=== PATIENT | female | born 1965 | race Two or more races ===

== ENCOUNTER 2023-01-18 18:07 | Inpatient (IN) | payer OTHER ==
[2023-01-18 20:36] LABS: PH,URINE 5.5 (5.0-8.0); URINE APPEARANCE CLEAR; URINE BILIRUBIN NEGATIVE (NEGATIVE); URINE COLOR YELLOW; URINE GLUCOSE (UA) 3+ (NEGATIVE); URINE KETONE 1+ (NEGATIVE); URINE LEUK ESTERASE NEGATIVE (NEGATIVE); URINE NITRITE NEGATIVE (NEGATIVE); URINE PROTEIN NEGATIVE (NEGATIVE); URINE UROBILINOGEN 0.2 mg/dL (0.2-1.0)
[2023-01-18] MEDS ORDERED: SODIUM CHLORIDE 0.9% 500 ML INFUS.BAG IV ONE ×2 (21:07→22:57)
[2023-01-18 21:20] LABS: BASO % 0.8 % (0-2.0); EOS % 0.2 % (0-4.5); HEMATOCRIT 39.3 % (32.4-45.2); HEMOGLOBIN 12.5 GM/dL (10.7-15.3); MCH 26.7 pg (25.7-33.7); MCHC 31.9 g/dl (32.0-36.0); MEAN CELL VOLUME 83.8 fl (80-96); MEAN PLT VOLUME 11.3 fl (7.5-11.1); MONO % 4.7 % (3.8-10.2); NEUT % 77.3 % (42.8-82.8); PLATELET COUNT 225 10^3/uL (134-434); RDW 16.5 % (11.6-15.6); WHITE BLOOD COUNT 14.1 K/mm3 (4.0-10.0)
[2023-01-18 21:30] LABS: CHLORIDE 92 mmol/L (98-107); SODIUM 125 mmol/L (136-145)
[2023-01-18 21:32] LABS: CALCIUM 8.8 mg/dL (8.5-10.1)
[2023-01-18 21:33] LABS: ALBUMIN 3.1 g/dl (3.4-5.0); BLOOD UREA NITROGEN 13.9 mg/dL (7-18); CO2 27 mmol/L (21-32)
[2023-01-18 21:36] LABS: CREATININE 1.2 mg/dL (0.55-1.3)
[2023-01-18 21:37] LABS: BILIRUBIN,TOTAL 0.7 mg/dL (0.2-1); TOT PROT 9.2 g/dl (6.4-8.2)
[2023-01-18 21:38] LABS: ALK PHOS 172 U/L (45-117)
[2023-01-18 23:41] LABS: ANION GAP 6 MMOL/L (8-16); GLUCOSE,RANDOM 753 mg/dL (74-106); POTASSIUM > 10.0 mmol/L (3.5-5.1); SGOT/AST 108 U/L (15-37); SGPT/ALT 40 U/L (13-61)
[2023-01-18] MEDS ORDERED: INSULIN REGULAR HUMAN 100 UNITS/ML *VIAL IVPUSH ONE (23:46)
[2023-01-18 23:52] LABS: BILIRUBIN,DIRECT < 0.1 mg/dL (0.0-0.2)
[2023-01-19 01:32] LABS: VENOUS BASE EXCESS -1.9 mmol/L (-2-2); VENOUS O2 SATURATION 79.5 % (70-80); VENOUS PCO2 43.2 mmHg (38-52); VENOUS PH 7.356 (7.310-7.410)
[2023-01-19 01:42] LABS: CHLORIDE 104 mmol/L (98-107); POTASSIUM 5.2 mmol/L (3.5-5.1); SODIUM 137 mmol/L (136-145)
[2023-01-19 01:44] LABS: ANION GAP 8 MMOL/L (8-16); CO2 25 mmol/L (21-32)
[2023-01-19 01:47] LABS: CREATININE 0.8 mg/dL (0.55-1.3)
[2023-01-19 02:41] LABS: CALCIUM 7.8 mg/dL (8.5-10.1); GLUCOSE,RANDOM 528 mg/dL (74-106)
[2023-01-19] MEDS ORDERED: INSULIN REGULAR HUMAN 100 UNITS/ML *VIAL IVPUSH ONE ×2 (04:29→04:37)
[2023-01-19] MEDS ORDERED: SODIUM CHLORIDE 1,000 ML IV STA (04:30)
[2023-01-19] MEDS ORDERED: INSULIN SLIDING SCALE (NOVOLOG) 1 VIAL SQ SCH (04:45)
[2023-01-19 06:43] LABS: POTASSIUM 3.6 mmol/L (3.5-5.1)
[2023-01-19 06:45] LABS: CALCIUM 7.2 mg/dL (8.5-10.1)
[2023-01-19 06:46] LABS: BLOOD UREA NITROGEN 9.7 mg/dL (7-18)
[2023-01-19 06:48] LABS: PHOSPHOROUS 1.2 mg/dL (2.5-4.9)
[2023-01-19 06:49] LABS: CREATININE 0.6 mg/dL (0.55-1.3)
[2023-01-19 06:50] LABS: BILIRUBIN,TOTAL 0.4 mg/dL (0.2-1)
[2023-01-19] MEDS ORDERED: INSULIN (NOVOLOG) ASPART 100 UNITS/ML 10ML VIAL SQ SCH (07:00)
[2023-01-19 07:05] LABS: BASO % 0.6 % (0-2.0); EOS % 1.4 % (0-4.5); HEMATOCRIT 30.7 % (32.4-45.2); HEMOGLOBIN 9.8 GM/dL (10.7-15.3); LYMPH % 24.9 % (8-40); MCH 25.9 pg (25.7-33.7); MCHC 32.1 g/dl (32.0-36.0); MEAN CELL VOLUME 80.9 fl (80-96); MEAN PLT VOLUME 9.1 fl (7.5-11.1); MONO % 7.3 % (3.8-10.2); NEUT % 65.8 % (42.8-82.8); PLATELET COUNT 162 10^3/uL (134-434); WHITE BLOOD COUNT 13.6 K/mm3 (4.0-10.0)
[2023-01-19 07:45] LABS: ALBUMIN 2.3 g/dl (3.4-5.0); TOT PROT 6.1 g/dl (6.4-8.2)
[2023-01-19] MEDS ORDERED: POTASSIUM CHLORIDE TABS 20 MEQ TABLET.ER (FP) PO ONE (08:00)
[2023-01-19] MEDS: NAPH,MB-DB/K PH,MBDB POWDER PACKET PO SCH ×3 (08:22→22:08)
[2023-01-19] MEDS: INSULIN SLIDING SCALE (NOVOLOG) 1 VIAL SQ SCH ×3 (08:23→17:52)
[2023-01-19] MEDS ORDERED: SODIUM PHOSPHATE - 30 MM in SODIUM CHLORIDE 500 ML IVPB ONE (08:30)
[2023-01-19] MEDS ORDERED: INSULIN (LEVEMIR) 100 UNITS/ML UNITS SQ SCH ×2 (10:00)
[2023-01-19] MEDS ORDERED: SODIUM CHLORIDE 1,000 ML IV SCH (10:15)
[2023-01-19] MEDS: ENOXAPARIN NA (PORCINE) 40 MG/0.4 ML DISP.SYRIN SQ SCH (10:44)
[2023-01-19] MEDS: BUDESONIDE/FORMETEROL FUMARATE 80/4.5 mcg INHALER IH SCH ×2 (11:22→22:09)
[2023-01-19] MEDS: INSULIN (NOVOLOG) ASPART 100 UNITS/ML 10ML VIAL SQ SCH ×2 (12:28→17:53)
[2023-01-19 16:38] VITALS: BMI 37.8
[2023-01-20] MEDS: NAPH,MB-DB/K PH,MBDB POWDER PACKET PO SCH ×3 (06:31→21:06)
[2023-01-20] MEDS: INSULIN (LEVEMIR) 100 UNITS/ML UNITS SQ SCH ×2 (06:35→21:07)
[2023-01-20] MEDS: INSULIN (NOVOLOG) ASPART 100 UNITS/ML 10ML VIAL SQ SCH ×3 (06:35→17:31)
[2023-01-20] MEDS: INSULIN SLIDING SCALE (NOVOLOG) 1 VIAL SQ SCH ×3 (06:36→17:31)
[2023-01-20] MEDS: BUDESONIDE/FORMETEROL FUMARATE 80/4.5 mcg INHALER IH SCH ×2 (09:49→21:08)
[2023-01-20] MEDS: ENOXAPARIN NA (PORCINE) 40 MG/0.4 ML DISP.SYRIN SQ SCH (09:49)
[2023-01-20 10:18] LABS: HEMOGLOBIN 11.1 GM/dL (10.7-15.3); MCH 26.6 pg (25.7-33.7); MCHC 32.8 g/dl (32.0-36.0); MEAN CELL VOLUME 81.2 fl (80-96); MEAN PLT VOLUME 10.1 fl (7.5-11.1); PLATELET COUNT 162 10^3/uL (134-434); RBC 4.19 M/mm3 (3.60-5.2); RDW 15.7 % (11.6-15.6); WHITE BLOOD COUNT 12.8 K/mm3 (4.0-10.0)
[2023-01-20 10:42] LABS: POTASSIUM 3.7 mmol/L (3.5-5.1)
[2023-01-20 10:45] LABS: ALBUMIN 2.5 g/dl (3.4-5.0); BLOOD UREA NITROGEN 4.4 mg/dL (7-18); CALCIUM 7.9 mg/dL (8.5-10.1); MAGNESIUM 1.7 mg/dL (1.8-2.4)
[2023-01-20 10:47] LABS: CHOLESTEROL 108 mg/dL (50-200)
[2023-01-20 10:48] LABS: LDL CHOLESTEROL (ONLY SJRH) 67 mg/dL (5-100); PHOSPHOROUS 1.9 mg/dL (2.5-4.9)
[2023-01-20 10:49] LABS: CREATININE 0.5 mg/dL (0.55-1.3)
[2023-01-20 10:50] LABS: BILIRUBIN,TOTAL 0.5 mg/dL (0.2-1); TOT PROT 6.6 g/dl (6.4-8.2)
[2023-01-20 10:51] LABS: HDL CHOLESTEROL 26 mg/dL (40-60)
[2023-01-20] MEDS: LISINOPRIL 5 MG TABLET PO SCH (11:38)
[2023-01-20 12:05] VITALS: RESP 18
[2023-01-20] MEDS ORDERED: MAGNESIUM 2GM/50ML STERILE WATER IVPB IVPB ONE (14:15)
[2023-01-20] MEDS ORDERED: LORazepam 2 MG/ML SDV VIAL IVPUSH PRN (14:21)
[2023-01-21] MEDS: NAPH,MB-DB/K PH,MBDB POWDER PACKET PO SCH ×3 (05:01→21:21)
[2023-01-21] MEDS: INSULIN (LEVEMIR) 100 UNITS/ML UNITS SQ SCH ×2 (06:03→21:21)
[2023-01-21] MEDS: INSULIN (NOVOLOG) ASPART 100 UNITS/ML 10ML VIAL SQ SCH ×3 (06:04→16:34)
[2023-01-21] MEDS: INSULIN SLIDING SCALE (NOVOLOG) 1 VIAL SQ SCH ×3 (06:04→16:34)
[2023-01-21] MEDS ORDERED: ACETAMINOPHEN 325 MG TABLET (FP) PO PRN (08:55)
[2023-01-21 09:34] LABS: POTASSIUM 4.3 mmol/L (3.5-5.1)
[2023-01-21 09:38] LABS: CHOLESTEROL 118 mg/dL (50-200)
[2023-01-21 09:39] LABS: BLOOD UREA NITROGEN 9.4 mg/dL (7-18); CALCIUM 8.1 mg/dL (8.5-10.1); MAGNESIUM 2.1 mg/dL (1.8-2.4)
[2023-01-21 09:40] LABS: LDL CHOLESTEROL (ONLY SJRH) 74 mg/dL (5-100)
[2023-01-21 09:41] LABS: HDL CHOLESTEROL 31 mg/dL (40-60)
[2023-01-21 09:42] LABS: CREATININE 0.6 mg/dL (0.55-1.3)
[2023-01-21] MEDS: LISINOPRIL 5 MG TABLET PO SCH (10:14)
[2023-01-21] MEDS: BUDESONIDE/FORMETEROL FUMARATE 80/4.5 mcg INHALER IH SCH ×2 (10:14→21:23)
[2023-01-21] MEDS: MAGNESIUM OXIDE 400 MG TABLET (FP) PO SCH ×2 (10:14→21:21)
[2023-01-21] MEDS: ENOXAPARIN NA (PORCINE) 40 MG/0.4 ML DISP.SYRIN SQ SCH (10:14)
[2023-01-22] MEDS: NAPH,MB-DB/K PH,MBDB POWDER PACKET PO SCH ×2 (05:10→13:56)
[2023-01-22] MEDS: INSULIN SLIDING SCALE (NOVOLOG) 1 VIAL SQ SCH ×3 (06:02→16:07)
[2023-01-22] MEDS ORDERED: INSULIN (NOVOLOG) ASPART 100 UNITS/ML 10ML VIAL SQ SCH (07:00)
[2023-01-22] MEDS ORDERED: INSULIN (LEVEMIR) 100 UNITS/ML UNITS SQ SCH ×2 (07:00→10:32)
[2023-01-22] MEDS: LISINOPRIL 5 MG TABLET PO SCH (09:23)
[2023-01-22] MEDS: MAGNESIUM OXIDE 400 MG TABLET (FP) PO SCH (09:23)
[2023-01-22] MEDS: ENOXAPARIN NA (PORCINE) 40 MG/0.4 ML DISP.SYRIN SQ SCH (09:23)
[2023-01-22] MEDS: BUDESONIDE/FORMETEROL FUMARATE 80/4.5 mcg INHALER IH SCH (09:29)
[2023-01-22] MEDS: metFORMIN HCL 500 MG TABLET (FP) PO SCH ×2 (11:16→16:01)
[2023-01-22] MEDS: INSULIN (NOVOLOG) ASPART 100 UNITS/ML 10ML VIAL SQ SCH ×2 (11:23→16:08)
[2023-01-22 14:24] VITALS: BP 112/67; PULSE 97; TEMP 99.3
[2023-01-22] MEDS ORDERED: PANTOPRAZOLE 40 MG TABLET PO ONE (15:15)
[2023-01-22] MEDS ORDERED: MAG HYDROX/AL HYDROX/SIMETH 30 ML UNIT-DOSE CUP PO ONE (15:15)
== END 2023-01-22 17:42 | disposition home or self-care (01) | DRG 420 ==
LOC: JER 18:07 → JERBED 01-19 03:45 → J5S 01-19 07:39 → OBSVTOIN 01-20 12:50
PROVIDERS: ADMIT Internal Medicine
DX: E11.00 Type 2 diabetes mellitus with hyperosmolarity without nonketotic hyperglycemic-hyperosmolar coma (NKHHC) (principal); I10 Essential (primary) hypertension; E78.5 Hyperlipidemia, unspecified; J44.9 Chronic obstructive pulmonary disease, unspecified; J45.909 Unspecified asthma, uncomplicated; E87.5 Hyperkalemia; E83.39 Other disorders of phosphorus metabolism; E87.6 Hypokalemia; F41.9 Anxiety disorder, unspecified; E66.9 Obesity, unspecified; Z68.37 Body mass index [BMI] 37.0-37.9, adult
CPT/HCPCS: 0241U-QW; 36415; 71045-TC-FY; 80048; 80053; 80061; 80076; 81003; 82010; 82803; 82962; 83036; 83735; 84100; 84443; 85025; 85027; 87086; 93005; 93010; 99285-25; G0378